=== PATIENT | female | born 1990 | race Caucasian/White ===

== ENCOUNTER 2021-05-14 10:39 | Emergency (ER) | payer MEDICAID, OTHER ==
--- NOTE | 2021-05-14 13:28 | EDM.PDOC ---
ED HPI GENERAL MEDICAL PROBLEM - General Chief Complaint: General Stated Complaint: POSSIBLY EXPOSED TO BRUCELLOSIS Time Seen by Provider: 05/14/21 13:11 Source of Information: Reports: Patient, RN Notes Reviewed History Limitations: Reports: No Limitations - History of Present Illness INITIAL COMMENTS - FREE TEXT/NARRATIVE: Patient is a 31-year-old female who presents to the ER for the evaluation of possible brucellosis exposure. 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 She did have flulike symptoms roughly 2 weeks ago, and has a lingering dry cough, but is not having any other major symptoms at today's visit. She notes that she had muscle aches, body aches, cough, extreme fatigue for 2 weeks, but again seems to be feeling better. Not complaining of any fevers or chills, or any loss of sense of taste or smell, so she did not think she was sick with COVID-19. Work is concerned about the possible brucellosis exposure, so they sent her here for evaluation. She has no primary care provider. - Related Data Allergies Allergy/AdvReac Type Severity Reaction Status Date / Time No Known Allergies Allergy Verified 05/14/21 10:48 Home Meds: Home Meds . 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 ED EXAM, GENERAL - Physical Exam Exam: See Below Exam Limited By: No Limitations General Appearance: Alert, WD/WN, No Apparent Distress Respiratory/Chest: No Respiratory Distress, Lungs Clear, Normal Breath Sounds, No Accessory Muscle Use, Chest Non-Tender Cardiovascular: Normal Peripheral Pulses, Regular Rate, Rhythm, No Edema GI/Abdominal: Normal Bowel Sounds, Soft, Non-Tender, No Distention, No Mass Neurological: Alert, Oriented, Normal Cognition, No Motor/Sensory Deficits Psychiatric: Normal Affect, Normal Mood Skin Exam: Warm, Dry, Intact, Normal Color, No Rash Course - Vital Signs Last Recorded V/S: Last Vital Signs Temp 97.4 F 05/14/21 10:45 Pulse 67 05/14/21 10:45 Resp 14 05/14/21 10:45 BP 147/82 H 05/14/21 10:45 Pulse Ox 99 05/14/21 10:45 - Orders/Labs/Meds Orders: Active Orders 24 hr Category Date Time Status MISC TEST Stat Lab 05/14/21 13:22 Ordered - Re-Assessments/Exams Free Text/Narrative Re-Assessment/Exam: 05/14/21 13:27 Patient presents to the ER for brucellosis testing. I have been in contact with lab, does appear that this is the [facility] test. I did fill out the forms, and have placed miscellaneous lab testing in the computer for collection of the sample. They were going to have to look it up in the state catalog and try to figure out what testing need to be done. Departure - Departure Time of Disposition: 13:28 Disposition: Home, Self-Care 01 Condition: Good Clinical Impression: Suspected brucellosis - Discharge Information *PRESCRIPTION DRUG MONITORING PROGRAM REVIEWED*: No *COPY OF PRESCRIPTION DRUG MONITORING REPORT IN PATIENT SHARRON: No Referrals: PCP,None [Primary Care Provider] - Additional Instructions: You were evaluated in the ER today for your suspected brucellosis exposure. Laboratory evaluation was taken at today's visit, this will have to be sent out to the state lab, and can take several business days to result. If you do not hear about any results by Thursday afternoon, please call our hospital to see if you can get results. Our telephone number [phone]. You will need to set up care with a primary care provider for ongoing management. Please call [phone] and obtain an appoint with any clinic provider, Dr. Baker, Nico Rossi, MULUGETA, or Dr. Acevedo would probably be your best choices. Do not hesitate to return to the ER at any time if symptoms change or worsen. Sepsis Event Note (ED) - Evaluation Sepsis Screening Result: No Definite Risk - Focused Exam Vital Signs: Vital Signs Temp Pulse Resp BP Pulse Ox 05/14/21 10:45 97.4 F 67 14 147/82 H 99 - My Orders Last 24 Hours: My Active Orders 05/14/21 13:22 MISC TEST Stat - Assessment/Plan Last 24 Hours: My Active Orders 05/14/21 13:22 MISC TEST Stat
== END 2021-05-14 13:56 | disposition home or self-care (01) ==
LOC: JD.ED 10:39
DX: Z20.818 Contact with and (suspected) exposure to other bacterial communicable diseases (principal); Z87.891 Personal history of nicotine dependence
CPT/HCPCS: 86000; 99282; 99283

== ENCOUNTER 2023-07-31 09:23 | Emergency (ER) | payer OTHER ==
[2023-07-31] MEDS ORDERED: Sodium Chloride 0.9% 10 ML Syringe FLUSH PRN ×2 (09:48→11:01)
[2023-07-31] MEDS ORDERED: Metoclopramide 10 MG/2 ML SDV IVPUSH ONE (09:50)
[2023-07-31] MEDS ORDERED: Dextrose 5%-0.9% NaCl 1,000 ML IV SCH (10:00)
[2023-07-31 10:11] LABS: BASOPHILS PERCENT AUTO 0.3 % (0.0-1.0); EOSINOPHILS ABSOLUTE AUTO 0.1 K/mm3 (0.0-0.4); EOSINOPHILS PERCENT AUTO 0.6 % (0.0-6.0); HEMATOCRIT 40.5 % (37.0-47.0); HEMOGLOBIN 13.7 gm/dl (12.0-16.0); IMMATURE GRAN ABSOLUTE AUTO 0.06 K/mm3 (0.00-0.05); IMMATURE GRAN PERCENT AUTO 0.4 % (0.0-0.4); LYMPHOCYTES ABSOLUTE AUTO 1.6 K/mm3 (1.0-4.8); LYMPHOCYTES PERCENT AUTO 10.6 % (24.0-44.0); MEAN CORPUSCULAR HEMOGLOBIN 30.4 pg (28.0-32.0); MEAN CORPUSCULAR HGB CONC 33.8 g/dl (32.0-36.0); MEAN CORPUSCULAR VOLUME 89.8 fl (83.0-99.0); MEAN PLATELET VOLUME 9.5 fl (9.4-12.3); MONOCYTES ABSOLUTE AUTO 1.1 K/mm3 (0.0-0.8); NEUTROPHILS ABSOLUTE AUTO 12.3 K/mm3 (1.8-7.7); NEUTROPHILS PERCENT AUTO 81.1 % (41.0-71.0); PLATELET COUNT,PLT 351 K/mm3 (150-400); RED BLOOD CELL COUNT 4.51 M/mm3 (4.10-5.30); WHITE BLOOD CELL COUNT,WBC 15.18 K/mm3 (3.9-11.3)
[2023-07-31 10:57] LABS: A/G RATIO 1.1 (1-2); ALANINE AMINOTRANSFERASE,ALT 39 U/L (14-59); ALBUMIN 4.1 g/dl (3.4-5.0); ALKALINE PHOSPHATASE 88 U/L (46-116); ASPARTATE AMNIOTRANSFERASE,AST 14 U/L (15-37); BILIRUBIN TOTAL 0.4 mg/dL (0.2-1.0); BLOOD UREA NITROGEN,BUN 10 mg/dL (7-18); BUN/CREATININE RATIO 12.5 (14-18); C-REACTIVE PROTEIN 0.6 mg/dL (<1.0); CARBON DIOXIDE,CO2 21 mEq/L (21-32); CHLORIDE,CL 103 mEq/L (98-107); CREATININE 0.8 mg/dL (0.55-1.02); EST CRCL DRUG DOSING (CG) 80.59 mL/min; ESTIMATED GFR 101 mL/min (>60); GLUCOSE RANDOM 107 mg/dL (70-99); LIPASE 29 U/L (16-77); PROTEIN TOTAL,TP 7.9 g/dl (6.4-8.2); SODIUM,NA 137 mEq/L (136-145)
[2023-07-31 11:00] LABS: HCG QUANTITATIVE < 1.0 mIU/mL
[2023-07-31] MEDS ORDERED: Diatrizoate Meglumine/Diatrizoate Sodium 37% 120 ML Bottle PO ONE (11:01)
[2023-07-31] MEDS ORDERED: Iopamidol 612 MG/ML 100 ML Bottle IVPUSH ONE ×2 (11:01→11:44)
[2023-07-31] MEDS ORDERED: Sodium Chloride 0.9% 10 ML Syringe FLUSH ONE (11:44)
[2023-07-31] MEDS ORDERED: Iopamidol 612 MG/ML 30 ML SDV IVPUSH ONE (11:45)
[2023-07-31 12:32] LABS: APPEARANCE,URINE CLEAR (Clear); BILIRUBIN,URINE NEGATIVE (Negative); COLOR,URINE YELLOW (Yellow); GLUCOSE,URINE 1+ (Negative); KETONES,URINE NEGATIVE (Negative); LEUKOCYTE ESTERASE,URINE NEGATIVE (Negative); NITRITE,URINE NEGATIVE (Negative); OCCULT BLOOD,URINE 1+ (Negative); PROTEIN,URINE NEGATIVE (Negative); UROBILINOGEN,URINE 0.2 (0.2-1.0)
[2023-07-31 13:08] LABS: BACTERIA,URINE NOT SEEN /hpf (FEW); EPITHELIAL CELLS,URINE 0-5 /hpf (0-5); MUCUS,URINE NOT SEEN /hpf (FEW); RBC,URINE 0-5 /hpf (0-5); WBC,URINE 0-5 /hpf (0-5)
== END 2023-07-31 14:55 | disposition home or self-care (01) ==
LOC: JD.ED 09:23
DX: K52.9 Noninfective gastroenteritis and colitis, unspecified (principal)
CPT/HCPCS: 36415; 74177; 80053; 81001; 83690; 84702; 85025; 86140; 96374; 99284; J2765; J3490; J7042; Q9963; Q9967